=== PATIENT | female | born 1935 | race Caucasian/White ===

== ENCOUNTER 2016-11-13 20:44 | Emergency (ER) | payer MEDICARE, BC ==
[~2016-11-13] VITALS: Ht 167.6 cm; Wt 38.5 kg
[~2016-11-13 20:44] MED LIST: TYL500 PO
[2016-11-13 21:19] VITALS: Ht 167.6 cm; Wt 38.5 kg
[2016-11-13 22:01] VITALS: BP 101/54; PULSE 89; RESP 22
[2016-11-13] MEDS ORDERED: BACITRACIN 0.9 GM OINT TOP ONE (22:30)
[2016-11-13] MEDS ORDERED: TYL500 PO (22:36)
--- NOTE | 2016-11-13 22:41 | ERD ---
ER Documentation Chief Complaint Date/Time DATE: 11/13/16 TIME: 22:38 Chief Complaint Fell on the patio per pt unwitness while getting up on the chair HPI This 81-year-old female states that she was getting up from a chair when she tripped on the patio and fell less than standing height to the ground when she put out her right arm. She denies hitting her head or any other part of her body. She has abrasions to her arm at the daughter noticed without any other complications. She emphatically denies any pain in any other part of her body and moves from constantly to demonstrate that she does not have any pain there. ROS All systems reviewed and are negative except as per history of present illness. Medications Home Meds Active Scripts Acetaminophen* (Tylenol*) 500 Mg Tab, 500 MG PO Q6H Y for PAIN AND OR ELEVATED TEMP, #10 TAB Prov:LAURA GARRETT DO 11/13/16 Acetaminophen* (Tylenol*) 500 Mg Tab, 500 MG PO Q4H Y for MILD PAIN LEVEL 1-3, # 20 TAB Prov:JUAN JOSE JOHNSON MD 03/22/15 Reported Medications [Unk] No Conflict Check 08/22/09 Allergies Allergies: Coded Allergies: Penicillins (Verified Allergy, Unknown, 08/22/09) PMhx/Soc History of Surgery: Yes (APPENDIX, 18 YRS OLD, SURGERY 1970) Hx Neurological Disorder: No Hx Respiratory Disorders: No Hx Cardiac Disorders: No Hx Psychiatric Problems: No Hx Miscellaneous Medical Probl: No (HX DETACH RETINA) Hx Alcohol Use: No Hx Substance Use: No Hx Tobacco Use: Yes Smoking Status: Former smoker Physical Exam Vitals Vital Signs Date Time Temp Pulse Resp B/P Pulse Ox O2 Delivery O2 Flow Rate FiO2 11/13/16 22:01 89 22 101/54 100 Room Air 11/13/16 21:19 98.2 60 20 104/59 98 Physical Exam Const: [] No distress, smiling talkative Head: Atraumatic Eyes: Normal Conjunctiva, EOMI, PRL ENT: Normal External Ears, Nose and Mouth. Neck: Full range of motion.. No midline tenderness or paraspinal muscle tenderness Resp: Clear to auscultation bilaterally Cardio: Regular rate and rhythm, no murmurs Abd: Soft, non tender, non distended. Normal bowel sounds Back: No midline or flank tenderness Ext: No cyanosis, or edema, full skeletal survey performed in the only abnormalities are skin tears in the patient's right lateral upper arm and right distal forearm area. She has no snuffbox tenderness or tenderness to palpation of any particular bone. She can move her elbow and wrist repeatedly without any pain. Neur: Awake and alert and oriented, no focal deficit Psych: Normal Mood and Affect Results 24 hrs Current Medications Medications (Trade) Dose Ordered Sig/Iesha Route PRN Reason Start Time Stop Time Status Last Admin Dose Admin Bacitracin (Bacitracin Oint (Ud)) 1 applic ONCE ONCE TOP 11/13/16 22:30 11/13/16 22:31 DC 11/13/16 22:27 Procedures/MDM 81-year-old female with fall. No my perform a more extensive workup and elderly female that falls. However she does not want this and her daughter seconds their opinion that she does not need x-rays or any blood work. She also does not want an EKG. She was placed on a monitoring manager and is stable on the monitor. I will respect her wishes and discharge her with Tylenol for pain. Dressing was applied and bacitracin was applied in her skin tears were wrapped. There is no suturable laceration primary care follow-up in 1-2 days and return emergency room if she experiences any concerning symptoms whatsoever. Departure Diagnosis: Primary Impression: Contusion of right arm Additional Impression: Skin tear Condition: Stable Patient Instructions: Contusion, Upper Extremity, Skin Avulsion Additional Instructions: Call your primary care doctor TOMORROW for an appointment during the next 1-2 days.See the doctor sooner or return here if your condition worsens before your appointment time. LAURA GARRETT DO November 13, 2016 22:41
== END 2016-11-13 22:46 | disposition home or self-care (01) ==
LOC: E/R 20:44
DX: S40.021A Contusion of right upper arm, initial encounter (principal); R40.2252 Coma scale, best verbal response, oriented, at arrival to emergency department; R40.2142 Coma scale, eyes open, spontaneous, at arrival to emergency department; R40.2362 Coma scale, best motor response, obeys commands, at arrival to emergency department; W01.0XXA Fall on same level from slipping, tripping and stumbling without subsequent striking against object, initial encounter; Y92.9 Unspecified place or not applicable; Z87.891 Personal history of nicotine dependence
CPT/HCPCS: 99283